=== PATIENT | female | born 1995 | race Two or more races ===

== ENCOUNTER 2020-04-28 14:50 | Emergency (ER) | payer SELFPAY ==
--- NOTE | 2020-04-28 15:02 | EDM.PDOC ---
ED HPI GENERAL MEDICAL PROBLEM - General Chief Complaint: Genitourinary Problem Stated Complaint: UTI Time Seen by Provider: 04/28/20 14:54 Source of Information: Reports: Patient History Limitations: Reports: No Limitations - History of Present Illness INITIAL COMMENTS - FREE TEXT/NARRATIVE: HISTORY AND PHYSICAL: History of present illness: Patient is a 24-year-old female who presents to the emergency room with complaints of dysuria x 2 to 3 days. She is concerned she has a urinary tract infection as symptoms feel similar to her previous UTI. Patient denies any fever, chills, headache, change in vision, syncope or near syncope. Denies any chest pain, back pain, shortness of breath or cough. Denies any abdominal pain, nausea, vomiting, diarrhea, constipation or vaginal discharge or concern of STI. She has not noted any blood in urine or stool. Patient has been eating and drinking appropriately. Review of systems: As per history of present illness and below otherwise all systems reviewed and negative. Past medical history: As per history of present illness and as reviewed below otherwise noncontributory. Surgical history: As per history of present illness and as reviewed below otherwise noncontributory. Social history: See social history for further information Family history: As per history of present illness and as reviewed below otherwise nonco ntributory. Physical exam: General: Well-developed and well-nourished 24-year-old female. Alert and oriented. Nontoxic-appearing and in no acute distress. HEENT: Atraumatic, normocephalic, pupils equal and reactive bilaterally, negative for conjunctival pallor or scleral icterus, mucous membranes moist, TMs normal bilaterally, throat clear, neck supple, nontender, trachea midline. No drooling or trismus noted. No meningeal signs. No hot potato voice noted. Lungs: Clear to auscultation, breath sounds equal bilaterally, chest nontender. Heart: S1S2, regular rate and rhythm without overt murmur Abdomen: Soft, nondistended, nontender. Negative for masses or hepatosplenomegaly. Negative for costovertebral tenderness. Pelvis: Stable nontender. Genitourinary: Declined Skin: Intact, warm, dry. No lesions or rashes noted. Extremities: Atraumatic, moves all extremities per self without difficulty or deficits, negative for cords or calf pain. Neurovascular unremarkable. Neuro: Awake, alert, oriented. Cranial nerves II through XII unremarkable. Cerebellum unremarkable. Motor and sensory unremarkable throughout. Exam nonfocal. Notes: Inform patient that her urine is within normal limits. At this time she would now like STD screening although she denies any vaginal discharge. We will have her self swab. Nursing staff reports that the patient is upset about "self swabbing" even though she initially was agreeable to it. 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 She was educated that she could decline the swab. (She initially refused STD screening and pelvic exam). She still wants the swab, but wants her discomfort made known. Reassurance was given. Patient's guardian Sole analysis positive, education was given on medication and the need for follow-up. Supportive care measures were reviewed and discussed. Voices understanding and is agreeable to plan of care. Denies any further questions or concerns at this time. Diagnostics: UA, WU, gonorrhea/chlamydia Therapeutics: None Prescription: Flagyl Impression: Dysuria Bacterial vaginosis Plan: 1. Take the Flagyl as directed. Please abstain from sex and alcohol while taking these medications due to side effects. Please use Tylenol and/or Ibuprofen as needed for pain and fever management. 2. Encourage fluids to prevent dehydration. 3. Please follow up with your primary care provider. Return to the ED as needed as discussed. Definitive disposition and diagnosis as appropriate pending reevaluation and review of above. urination Pain Score (Numeric/FACES): 6 - Related Data Allergies Allergy/AdvReac Type Severity Reaction Status Date / Time ibuprofen Allergy Other Verified 04/28/20 14:59 sulfamethoxazole Allergy Rash Verified 04/28/20 14:59 [From Bactrim] trimethoprim [From Bactrim] Allergy Rash Verified 04/28/20 14:59 Home Meds: Home Meds ARIPiprazole [Abilify] 1 tab PO DAILY 04/28/20 [History] OXcarbazepine [Oxcarbazepine] 1 tab PO DAILY 04/28/20 [History] Propranolol HCl [Propranolol] 1 tab PO DAILY 04/28/20 [History] Venlafaxine [Effexor] 1 tab PO DAILY 04/28/20 [History] metroNIDAZOLE [Flagyl] 500 mg PO BID 7 Days #14 tab 04/28/20 [Rx] ED ROS GENERAL - Review of Systems Review Of Systems: Comprehensive ROS is negative, except as noted in HPI. ED EXAM, RENAL/ - Physical Exam Exam: See Below (See dictation) Course - Vital Signs Last Recorded V/S: Last Vital Signs Temp 96.8 F L 04/28/20 15:01 Pulse 84 04/28/20 15:01 Resp 17 04/28/20 15:01 BP 136/58 L 04/28/20 15:01 Pulse Ox 98 04/28/20 15:01 - Orders/Labs/Meds Orders: Active Orders 24 hr Category Date Time Status CHLAMYDIA AND GONORRHEA BY TMA Stat Lab 04/28/20 15:21 Received Labs: Laboratory Tests 04/28/20 04/28/20 04/28/20 Range/Units 15:05 15:05 15:21 Urine Color YELLOW Urine Appearance CLEAR Urine pH 5.5 (5.0-8.0) Ur Specific [place] >= 1.030 (1.001-1.035) Urine Protein NEGATIVE (NEGATIVE) mg/dL Urine Glucose (UA) NEGATIVE (NEGATIVE) mg/dL Urine Ketones NEGATIVE (NEGATIVE) mg/dL Urine Occult Blood NEGATIVE (NEGATIVE) Urine Nitrite NEGATIVE (NEGATIVE) Urine Bilirubin NEGATIVE (NEGATIVE) Urine Urobilinogen 0.2 (<2.0) EU/dL Ur Leukocyte Esterase NEGATIVE (NEGATIVE) Urine HCG, Qual NEGATIVE (NEGATIVE) Niya species DNA NEGATIVE (NEGATIVE) Gardnerella DNA Probe POSITIVE H (NEGATIVE) Trichomonas DNA Probe NEGATIVE (NEGATIVE) Departure - Departure Time of Disposition: 16:36 Disposition: Home, Self-Care 01 Clinical Impression: Bacterial vaginosis, Dysuria - Discharge Information Prescriptions: metroNIDAZOLE [Flagyl] 500 mg PO BID 7 Days #14 tab Instructions: Bacterial Vaginosis, [id number] Referrals: PCP,None [Primary Care Provider] - Forms: ED Department Discharge Additional Instructions: The following information is given to patients seen in the emergency department who are being discharged to home. This information is to outline your options for follow-up care. We provide all patients seen in our emergency department with a follow-up referral. The need for follow-up, as well as the timing and circumstances, are variable depending upon the specifics of your emergency department visit. If you don't have a primary care physician on staff, we will provide you with a referral. We always advise you to contact your personal physician following an emergency department visit to inform them of the circumstance of the visit and for follow-up with them and/or the need for any referrals to a consulting specialist. The emergency department will also refer you to a specialist when appropriate. This referral assures that you have the opportunity for follow-up care with a specialist. All of these measure are taken in an effort to provide you with optimal care, which includes your follow-up. Under all circumstances we always encourage you to contact your private physician who remains a resource for coordinating your care. When calling for follow-up care, please make the office aware that this follow-up is from your recent emergency room visit. If for any reason you are refused follow-up, please contact the [facility] Emergency Department at and asked to speak to the emergency department charge nurse. [facility] [address] [place] [address] [place] [address] 1. Take the Flagyl as directed. Please abstain from sex and alcohol while taking these medications due to side effects. Please use Tylenol and/or Ibuprofen as needed for pain and fever management. 2. Encourage fluids to prevent dehydration. 3. Please follow up with your primary care provider. Return to the ED as needed as discussed. Sepsis Event Note (ED) - Focused Exam Vital Signs: Vital Signs Temp Pulse Resp BP Pulse Ox 04/28/20 15:01 96.8 F L 84 17 136/58 L 98 - My Orders Last 24 Hours: My Active Orders 04/28/20 15:21 CHLAMYDIA AND GONORRHEA BY TMA Stat - Assessment/Plan Last 24 Hours: My Active Orders 04/28/20 15:21 CHLAMYDIA AND GONORRHEA BY TMA Stat
== END 2020-04-28 16:41 | disposition home or self-care (01) ==
LOC: MW.ED 14:50
DX: N76.0 Acute vaginitis (principal); R30.0 Dysuria; Z88.6 Allergy status to analgesic agent; Z88.2 Allergy status to sulfonamides; Z88.1 Allergy status to other antibiotic agents; Z79.899 Other long term (current) drug therapy
CPT/HCPCS: 81003; 81025; 87480; 87491; 87510; 87591; 87660; 99283

== ENCOUNTER 2023-04-12 13:03 | Emergency (ER) | payer OTHER, MEDICAID ==
[2023-04-12] MEDS ORDERED: Diazepam 2 MG Tab PO ONE (13:39)
== END 2023-04-12 14:26 | disposition home or self-care (01) ==
LOC: MW.ED 13:03
DX: S39.012A Strain of muscle, fascia and tendon of lower back, initial encounter (principal); S86.911A Strain of unspecified muscle(s) and tendon(s) at lower leg level, right leg, initial encounter; M25.551 Pain in right hip; Z88.1 Allergy status to other antibiotic agents; Z88.8 Allergy status to other drugs, medicaments and biological substances; V89.2XXA Person injured in unspecified motor-vehicle accident, traffic, initial encounter; Y92.410 Unspecified street and highway as the place of occurrence of the external cause
CPT/HCPCS: 99283; A9270